=== PATIENT | male | born 1980 | race Hispanic/Latino ===

== ENCOUNTER 2022-08-31 20:27 | Emergency (ER) | payer OTHER, SELFPAY ==
--- NOTE | ~2022-08-31 | XR_ITS ---
EXAMINATION: XR chest 2V DATE: 08/31/2022 21:42 INDICATION: Right-sided chest pain, cough, fever and wheezing TECHNIQUE: PA and lateral views of the chest were obtained. COMPARISON: None FINDINGS: Mild linear and bandlike discoid atelectasis at the bilateral lung bases. No pulmonary edema, pleural effusion or pneumothorax. The cardiomediastinal silhouette is normal. Mild thoracic spondylosis. IMPRESSION: 1. Mild bibasilar atelectasis. Reviewed, dictated and finalized at location A. [facility]
[2022-08-31 20:30] VITALS: BP 188/91; PULSE 96; RESP 18; TEMP 37; O2SAT 99
--- NOTE | 2022-08-31 21:21 | ED.URI ---
HPI - URI/Sore Throat General Chief Complaint: Upper Respiratory Infection <BARBY Kaba Last Filed: 09/01/22 01:07> Stated Complaint: upper resp <Obdulia Haro PA-C - Last Filed: 09/01/22 01:07> Time Seen by Provider: 08/31/22 20:52 <BARBY Kaba Last Filed: 09/01/22 01:07> History of Present Illness HPI Narrative: 42-year-old male here for evaluation of upper respiratory infectious symptoms for the past several days. Reports low-grade fevers, chills, productive cough and right-sided rib pain with cough. He has attempted Tylenol ibuprofen and Mucinex with good relief of his symptoms. Denies any history of respiratory disease. No leg swelling, chest pain, syncope, shortness of breath, palpitations or sick contacts. <BARBY Kaba Last Filed: 09/01/22 01:07> Related Data Allergies/Adverse Reactions: Allergies Allergy/AdvReac Type Severity Reaction Status Date / Time No Known Allergies Allergy Verified 08/31/22 20:34 <BARBY Kaba Last Filed: 09/01/22 01:07> Review of Systems Review of Systems: Gen: Reports fevers Eyes: Denies eye pain or visual change ENT: Reports congestion Respiratory: Reports cough CV: Denies chest pain or palpitations GI: Denies abdominal pain nausea, emesis or diarrhea denies burning, urgency, frequency or hematuria Musculoskeletal: Denies back pain or muscle pain Neuro: Denies numbness, tingling, weakness or focal weakness Skin: Denies rash Except as documented, all other systems reviewed and negative <BARBY Kaba Last Filed: 09/01/22 01:07> Exam Narrative: APPEARANCE: Well appearing, no pain in distress, well-nourished. Head: Normocephalic and atraumatic. EYES: PERRLA/EOMI, conjunctivae clear NOSE: No nasal drainage EARS: External ear normal in appearance THROAT: Oropharynx is clear. Mucous membranes are moist. NECK: Supple. No adenopathy, no masses. RESPIRATORY: Diffuse expiratory wheezing throughout lung guerra. Airway patent, respirations nonlabored. CARDIOVASCULAR: Regular rate and rhythm without murmurs, rubs, or gallops. ABDOMINAL: Normoactive bowel sounds. Soft, nontender, nondistended. No rebound tenderness or guarding. MUSCULOSKELETAL: No tenderness along chest wall. extremities are warm and well-perfused. Moves all extremities well. No edema. NEURO: Normal speech. No focal neurologic deficits. SKIN: Skin is warm and dry. No rashes. PSYCHIATRIC: Normal affect/mood.. <Obdulia Haro PA-C - Last Filed: 09/01/22 01:07> Course FUR MIXER/PA Physician Supervision This is a was performed by both a physician and an APC. I performed all aspects of the MDM as documented w/ the following additions: 42-year-old male presenting with URI symptoms and some wheezing. Chest x-ray did not show pneumonia. Patient did receive an albuterol treatment with improvement in his symptoms. patient is comfortable going home at this time. All questions answered. Patient in agreement w/ disposition. <Rey Reese MD - Last Filed: 09/01/22 04:54> Vital Signs Vital signs: Vital Signs Temperature 98.6 F 08/31/22 20:30 Pulse Rate 96 08/31/22 20:30 Respiratory Rate 18 08/31/22 20:30 Blood Pressure 188/91 H 08/31/22 20:30 Pulse Oximetry 99 08/31/22 20:30 Oxygen Delivery Room Air 08/31/22 20:30 Temperature 100.1 F H 08/31/22 22:54 Pulse Rate 94 08/31/22 22:54 Respiratory Rate 22 H 08/31/22 22:54 Blood Pressure 132/81 08/31/22 22:54 Pulse Oximetry 97 08/31/22 22:54 Oxygen Delivery Room Air 08/31/22 20:46 <Obdulia Haro PA-C - Last Filed: 09/01/22 01:07> Vital Signs Temperature 98.6 F 08/31/22 20:30 Pulse Rate 96 08/31/22 20:30 Respiratory Rate 18 08/31/22 20:30 Blood Pressure 188/91 H 08/31/22 20:30 Pulse Oximetry 99 08/31/22 20:30 Oxygen Delivery Room Air 08/31/22 20:30 Temperatur
[2022-08-31] MEDS: ALBUTEROL SULFATE NEB 2.5 MG/3 ML INH INHALATION (21:37)
[2022-08-31 22:14] LABS: Influenza A QL RT-PCR Negative (Negative); Influenza B QL RT-PCR Negative (Negative); SARS-CoV-2 RNA PCR Negative
[2022-08-31 22:54] VITALS: BP 132/81; PULSE 94; RESP 22; TEMP 37.8; O2SAT 97
== END 2022-08-31 22:55 | disposition home or self-care (01) ==
PROVIDERS: Emergency Provider Physician Assistant
DX: J06.9 Acute upper respiratory infection, unspecified (principal); Z20.822 Contact with and (suspected) exposure to COVID-19
CPT/HCPCS: 71046; 87636; 99283